=== PATIENT | female | born 1950 | race Caucasian/White ===

== ENCOUNTER → 2017-11-10 | Emergency (ER) | payer OTHER, BC ==
[~2017-11-10] VITALS: Ht 165.1 cm; Wt 90.7 kg
[~2017-11-10] MED LIST: ACIDOPHILUS 17175 MG; CLIMARA PRO PA1 EACH; CYMBALTA60 MG; HUMALOG100 UNIT/1; KLOR-CON M1010 MEQ; LASIX20 MG; LEVEMIR100 UNIT/1; LISINOPRIL10 MG; MAGNESIUM500 MG; MIRAPEX0.25 MG; SYNTHROID150 MCG; TRADJENTA5 MG; XANAX0.25 MG; ZANAFLEX2 MG; ZOCOR20 MG
== END | disposition designated cancer center or children's hospital (05) ==
LOC: ER 17:59 → CPU-OBS 18:14 → ER 18:14
DX: I21.29 ST elevation (STEMI) myocardial infarction involving other sites (principal); R07.89 Other chest pain

== ENCOUNTER 2022-06-09 08:59 | Outpatient (CLI) | payer OTHER | END 2022-06-09 09:07 | disposition home or self-care (01) | LOC: MAMO-SONO 08:59 | PROVIDERS: ATTEND Internal Medicine | DX: Z12.31 Encounter for screening mammogram for malignant neoplasm of breast (principal) ==

== ENCOUNTER 2023-07-11 14:31 | Outpatient (CLI) | payer OTHER | END 2023-07-11 14:40 | disposition home or self-care (01) | LOC: MAMO-SONO 14:31 | PROVIDERS: ATTEND Internal Medicine | DX: Z12.31 Encounter for screening mammogram for malignant neoplasm of breast (principal); Z12.39 Encounter for other screening for malignant neoplasm of breast ==

== ENCOUNTER 2024-08-08 14:04 | Outpatient (CLI) | payer OTHER | END 2024-08-08 14:15 | disposition home or self-care (01) | LOC: MAMO-SONO 14:04 | PROVIDERS: ATTEND Internal Medicine | DX: N60.19 Diffuse cystic mastopathy of unspecified breast (principal) ==

== ENCOUNTER 2024-08-16 13:32 | Outpatient (CLI) | payer OTHER | END 2024-08-16 13:34 | disposition home or self-care (01) | LOC: NUCLEAR 13:32 | PROVIDERS: ATTEND Internal Medicine | DX: Z13.820 Encounter for screening for osteoporosis (principal); M81.0 Age-related osteoporosis without current pathological fracture ==